=== PATIENT | male | born 1980 | race Caucasian/White ===

== ENCOUNTER 2019-05-27 19:07 | Emergency (ER) | payer BC, SELFPAY ==
--- NOTE | ~2019-05-27 | XR_ITS ---
EXAMINATION: XR wrist RT min 3V DATE: 05/27/2019 19:47 INDICATION: Right wrist pain TECHNIQUE: Posteroanterior, ulnar deviation, oblique, and lateral views of the right wrist were obtai luis carlos. COMPARISON: None available FINDINGS: There is soft tissue swelling of the wrist near the ulnar styloid. Slight cortical irregula rity is seen in the ulnar styloid. The remaining osseous structures are normal. Bone alignment is nor mal. IMPRESSION: 1. Subtle cortical irregularity of the ulnar styloid which could reflect nondisplaced fracture. Reviewed, dictated and finalized at location A. IMPRESSION: 1. Subtle cortical irregularity of the ulnar styloid which could reflect nondis placed fracture.
[2019-05-27 19:27] VITALS: BP 132/88; PULSE 99; RESP 21; TEMP 37.3; O2SAT 99
--- NOTE | 2019-05-27 20:08 | ED.GENADULT ---
HPI - General Adult General Chief complaint: Extremity Injury, Upper Stated complaint: right wrist injury Time Seen by Provider: 05/27/19 20:08 Source: patient and RN notes reviewed Mode of arrival: ambulatory Limitations: no limitations History of Present Illness HPI narrative: 38-year-old male presents with complaints of right lateral wrist swelling pain which occurred today after a trauma to RT accident approximately at 17:00/17:30 for 1 day. Ibuprofen (800 mg) and ice without some relief. Tae says he was putting u a trampoline when it came back on him hitting his wrist. Symptoms worsen over the last hour. No numbness or tingling. No radiating pain. No swelling. No immobility, suspected foreign body, or abuse. Exacerbating factors consist of movement of RT wirst and palpation. The relieving factor is rest. The dominant hand is the Right hand. Denies getting hit in head or loss of consciousness. Denies fever or chills. Some parts of this dictation were generated by voice recognition software and may contain typographical and/or grammatical inaccuracies. Related Data Home Medications Medication Instructions Recorded Confirmed gabapentin 300 mg capsule 300 mg PO DAILY 06/03/19 Allergies Allergy/AdvReac Type Severity Reaction Status Date / Time sulfamethoxazole Allergy Unknown rash, hives Verified 06/03/19 07:41 trimethoprim Allergy Unknown rash, hives Verified 04/26/18 09:04 Review of Systems Review of Systems: Narrative: CONSTITUTIONAL: Denies fever, chills, sweats. EYES: Denies visual changes, redness, discharge. ENT: Denies rhinorrhea, congestion, sore throat, otalgia. CARDIOVASCULAR: Denies chest pain, palpitations, edema. RESPIRATORY: Denies dyspnea, wheezing, cough GASTROINTESTINAL: Denies abdominal pain, nausea, vomiting, diarrhea. GENITOURINARY: Denies dysuria, hematuria, abnormal discharge SKIN: Denies rash or itching. MUSCULOSKELETAL: Denies acute back pain or myalgia. Complains of right lateral wrist pain and swelling. NEUROLOGIC: Denies numbness, or focal weakness. PSYCHIATRIC: Denies anxiety or depression. All other systems reviewed are negative, except as documented in HPI and below. [facility] Past Medical History Medical History (Updated 06/03/19 @ 08:16 by Tommy Vazquez MD) No significant past medical history Skin problem Surgical History Surgical History (Updated 06/03/19 @ 08:10 by Tommy Vazquez MD) History of carpal tunnel surgery Left 2018: Bilateral carpal tunnel surgery, bilateral ulnar nerve decompressions, right radial nerve decompression, Dupuytren's excision right hand complicated by infection and he is left with residual stiffness. Social History Social History Smoking status: Never smoker Second hand tobacco smoke exposure: No Alcohol intake: current Substance use: never Additional living arrangements comments: and 5 children Additional occupation/education comments: [employer] Gender identity (if verbalized by the patient): Male Comments At time of signature, agree with nurse past medical, surgical, social, and family history. There is no relevant family history pertinent to the presenting complaint. Exam Narrative: Exam Narrative: GENERAL: This is a well-nourished, well-developed patient, in no apparent distress. HEAD: normocephalic, atraumatic. EYES: PERRL. Sclera clear/white. Vision is grossly intact. CARDIOVASCULAR: Regular rate and rhythm without murmurs, gallops, or rubs. RESPIRATORY: Clear to auscultation. Breath sounds equal bilaterally. No wheezes, rales, or rhonchi. GASTROINTESTINAL: Abdomen soft, non-tender, nondistended. Bowel sounds are active. No hepato-splenomegaly, or palpable masses. No guarding. SKIN: warm, intact with no suspicious lesions or rash, good texture and turgor. NEURO: awake, alert, and oriented to person, place and time. There were no
== END 2019-05-27 20:27 | disposition home or self-care (01) ==
PROVIDERS: Emergency Provider Nurse Practitioner Family
DX: S62.101A Fracture of unspecified carpal bone, right wrist, initial encounter for closed fracture (principal); X58.XXXA Exposure to other specified factors, initial encounter; K21.9 Gastro-esophageal reflux disease without esophagitis
CPT/HCPCS: 29515; 73110; 99214; G0463